=== PATIENT | male | born 1945 | race American Indian/Alaskan Native ===

== ENCOUNTER 2017-11-14 11:18 | Day surgery (SDC) | payer MEDICARE ==
[~2017-11-14 11:18] MED LIST: TETRACAINE 0.5% OD PRN
--- NOTE | 2017-11-14 13:06 | Anesthesia Day of Surgery ---
Anesthesia Day of Surgery - Day of Surgery Patient Examined: Yes Patient H&P Reviewed: Yes Patient is NPO: Yes
--- NOTE | 2017-11-14 13:06 | Anesthesia Consultation ---
Anesthesia Consult and Med Hx Date of service: 11/14/17 - Airway Anesthetic Teeth Evaluation: Good ROM Head & Neck: Adequate Mental/Hyoid Distance: Adequate Mallampati Class: Class I Intubation Access Assessment: Good - Pulmonary Exam CTA: Yes (wheezy from cold) - Cardiac Exam Cardiac Exam: RRR - Pre-Operative Health Status ASA Pre-Surgery Classification: ASA3 Proposed Anesthetic Plan: MAC - Pulmonary Hx Sleep Apnea: Yes (NON COMPLIANT WITH CPAP) - Cardiovascular System Hx Hypertension: Yes (1972) Hx Pacemaker: Yes - Central Nervous System Hx Psychiatric Problems: No - Other Systems Hx Alcohol Use: No Hx Substance Use: No Hx Cancer: No - Additional Comments Anesthesia Medical History Comments: high cholest. Has cold with cough, wheezy
[2017-11-14] MEDS ORDERED: PROVENTIL IH ONE (13:38)
[2017-11-14] MEDS ORDERED: PROVENTIL IH NR (13:50)
[2017-11-14] MEDS: MYDRIACYL OD SCH ×3 (13:50→14:00)
[2017-11-14] MEDS: VIGAMOX OD SCH ×3 (13:50→14:00)
[2017-11-14] MEDS: AK-Dilate OD SCH ×3 (13:50→14:00)
[2017-11-14] MEDS ORDERED: SUBLIMAZE ONE (13:56)
[2017-11-14] MEDS ORDERED: VERSED ONE (13:56)
--- NOTE | 2017-11-14 15:06 | Operative Report ---
Operative Report Operative Report: PATIENT'S NAME: DATE OF : DATE OF SURGERY: 11/14/2017 PREOPERATIVE DIAGNOSIS: Cataract right eye POSTOPERATIVE DIAGNOSIS: Same OPERATIVE PROCEDURE: Phacoemulsification with intraocular lens implantation, right eye SURGEON: Aruna Harris M.D. STUDENT OUTREACH COORDINATOR SURGEON: Nuria Lens: SA60WF 21.0 D ANESTHESIA: Monitored anesthesia care in combination with topical and intracameral anesthesia because of the established specific risk of reflux, arrhythmias, or anxiety attacks associated with ocular manipulation, as well as the difficulty of the sugar house supervisor to manage such potentially catastrophic events while simultaneously attempting to complete the surgical procedure and was deemed necessary for the patient's safety to have an Communications Advisor present during the procedure whenever possible. An Communications Advisor was utilized to regulate the intravenous sedation of the patient so the patient was cooperative yet not asleep in order for the patient to successfully maintain fixation of the eye on the operating light of the microscope. COMPLICATIONS: No surgical complications No blood loss. ALLERGIES: Codeine lisinopril metformin niacin PROGNOSIS: Excellent INDICATIONS FOR SURGERY: The patient is undergoing surgery in the hopes of eliminating or improving these visual difficulties. PROCEDURE: After arriving at the surgery center, the patient was given topical anesthetic and dilating drops, as noted in the record. The patient was then taken into the operating room and given more anesthetic drops. The eyelids , lashes, and lid margins were scrubbed with Betadine solution, and the patient was draped. The Nurse Communications Advisor administered IV sedation and monitored the patient during the procedure. The eye was then fixated with a 0.12, and a stab incision was made in the peripheral clear cornea into the anterior chamber. This was made on my left side. Viscoelastic was next used to fill the anterior chamber. The eye was once again fixated with the 0.12 forceps and a keratome was used make an incision in clear cornea peripherally on my right hand side temporally. The capsule forceps were used to open the central anterior capsule and then make a continuous round capsulotomy. Hydrodissection was carried out utilizing a cannula and balanced salt solution to delineate the cortical material from the capsule and the nucleus from the cortical material. The phaco tip was introduced into the eye and used to remove the anterior cortical material in the area of the capsulotomy. Then the phaco tip was buried into the nucleus, and a chopping instrument was introduced into the eye and used to provide countertraction in the nucleus between this instrument and the phaco tip fracturing the nucleus. This procedure was repeated multiple times, providing multiple small segments of the lens, and then the phaco tip was used to remove each of these segments. An I/A tip was then used to remove the remaining cortex. The anterior chamber was refilled with viscoelastic. An one-piece, acrylic intraocular lens was then placed into an inserting cartridge. The tip of the inserting cartridge was introduced into the keratome incision and into the anterior chamber. The implant was gently advanced through the cartridge and into the eye, where it unfolded, and both haptics were placed in the capsular bag, where it centered nicely and appeared to be well fixated. After placement of the intraocular lens, the I~and~A handpiece was placed back into the eye and used to remove the viscoelastic, including viscoelastic that was behind the optic of the intraocular lens. The anterior chamber was then filled with balanced salt solution, and hydration of the wound was used to cause swelling of the wound and more appropriate watertight closure. When the wound was found to be firm, the patient was asked to comment on how bright the light was. If there was no light perception at all or if the light was substantially dimmer than during the rest of the surgery, the amount of fluid in the eye was decompressed to lower the intraocular pressure until the patient could see the bright light again. This was done to avoid any damage or decreased blood flow to the optic nerve. MEDICATIONS APPLIED AT END OF SURGERY: One drop of Pred Forte and Vigamox The patient was given a shield to wear at night and was instructed not to rub or push on the eye. DISCHARGE SUMMARY: The patient was released in stable condition. The patient and those with the patient were given a written sheet of postoperative instructions and counseling on any abnormal laboratory studies. The patient is to see us tomorrow for follow-up in the office and is to call immediately for any difficulties. Aruna Harris M.D. Date
--- NOTE | 2017-11-14 15:07 | Short Stay Summary ---
Short Stay Documentation Date of service: 11/14/17 - History H&P: obtained from office - Allergies and Medications Current Medications: Allergies codeine Allergy (Verified 11/13/17 16:19) Unknown lisinopril Allergy (Verified 11/13/17 16:19) Unknown metformin Allergy (Verified 11/13/17 16:19) Unknown niacin Allergy (Verified 11/13/17 16:19) Unknown rosuvastatin Allergy (Verified 11/13/17 16:19) Unknown simvastatin Allergy (Verified 11/13/17 16:19) Unknown spironolactone Allergy (Verified 11/13/17 16:19) Unknown tramadol Allergy (Verified 11/13/17 16:19) Unknown Home Medications Medication Instructions Recorded Confirmed Last Taken Type Acetaminophen [Pain Relief] 500 mg PO TID 11/13/17 11/13/17 11/13/17 History Albuterol Sulfate [Proair 90 mcg IH Q6H PRN 11/13/17 11/14/17 05/02/17 History Respiclick] Allopurinol [Zyloprim] 300 mg PO QDAY 11/13/17 11/13/17 11/13/17 History Aspirin EC [Aspirin Enteric Coated 81 mg PO QDAY 11/13/17 11/13/17 11/13/17 History TAB] Atorvastatin Calcium [Lipitor] 80 mg PO QDAY 11/13/17 11/13/17 11/13/17 History Eplerenone [Inspra] 25 mg PO DAILY 11/13/17 11/13/17 11/13/17 History Furosemide [Lasix TAB] 40 mg PO BID 11/13/17 11/13/17 11/13/17 History Gabapentin [Neurontin] 400 mg PO Q8HR 11/13/17 11/13/17 11/13/17 History Insulin Aspart [NovoLOG Flexpen] 20 units SQ AC 11/13/17 11/13/17 11/13/17 History Insulin Glargine [Lantus] 50 units SQ QHS 11/13/17 11/13/17 11/13/17 History Metoprolol Succinate [Toprol Xl] 200 mg PO DAILY 11/13/17 11/13/17 11/13/17 History Montelukast [Singulair] 10 mg PO QPM 11/13/17 11/13/17 Unknown History Potassium Chloride [K-Dur] 20 meq PO QDAY 11/13/17 11/13/17 11/13/17 History Sildenafil Citrate [Viagra] 25 mg PO QDAY PRN 11/13/17 11/13/17 11/13/17 History Valsartan [Diovan] 160 mg PO BID 11/13/17 11/13/17 11/13/17 History Active Medications Albuterol (Proventil) 2.5 mg IH PREOP NR Stop: 11/14/17 23:59 Moxifloxacin HCl (Vigamox) 1 drops OD Q5MIN JACQUELYN Stop: 11/14/17 23:59 Last Admin: 11/14/17 14:00 Dose: 1 drops Phenylephrine HCl (Ak-Dilate) 1 drops OD Q5MIN JACQUELYN Stop: 11/16/17 06:01 Last Admin: 11/14/17 14:00 Dose: 1 drops Prednisolone Acetate (Pred Forte 1%) 1 drops OD QID JACQUELYN Tetracaine HCl (Tetracaine 0.5%) 1 drops OD Q5M PRN PRN Reason: Analgesia Last Admin: 11/14/17 13:50 Dose: 1 drops Tropicamide (Mydriacyl) 1 drops OD Q5MIN JACQUELYN Stop: 11/16/17 06:01 Last Admin: 11/14/17 14:00 Dose: 1 drops - Brief post op/procedure progress note Date of procedure: 11/14/17 Pre-op diagnosis: right cataract Post-op diagnosis: same Procedure: Phacoemulsification with intraocular lens insertion right eye Anesthesia: MAC Surgeon: SHEELA GALARZA Estimated blood loss: none Pathology: none Condition: stable - Disposition Condition at discharge: Good Disposition: DC-01 TO HOME OR SELFCARE - Discharge Diagnoses (1) Cataract Status: Acute Qualifiers: Cataract type: age-related Age-related cataract type: nuclear Laterality : right Qualified Code(s): H25.11 - Age-related nuclear cataract, right eye Short Stay Discharge Plan Additional Instructions: FOLLOW SURGEON INSTRUCTION SHEETS. Follow up with: CLEMENCIA KEBEDE MD [Primary Care Provider] - 7 Days Forms: Outpatient Surgery DC Inst.
[2017-11-14 15:25] VITALS: BP 116/59
[2017-11-14] MEDS ORDERED: PRED FORTE 1% OD SCH (16:30)
== END 2017-11-14 15:35 | disposition home or self-care (01) ==
LOC: OR 11:18
DX: H25.11 Age-related nuclear cataract, right eye (principal); M19.90 Unspecified osteoarthritis, unspecified site; E11.9 Type 2 diabetes mellitus without complications; I10 Essential (primary) hypertension; I50.9 Heart failure, unspecified; Z88.5 Allergy status to narcotic agent; Z88.8 Allergy status to other drugs, medicaments and biological substances; Z79.82 Long term (current) use of aspirin; Z79.899 Other long term (current) drug therapy; Z79.4 Long term (current) use of insulin; Z95.0 Presence of cardiac pacemaker
CPT/HCPCS: 66984; 82962; J2250; J3010; V2632

== ENCOUNTER 2017-11-28 06:50 | Day surgery (SDC) | payer MEDICARE ==
[~2017-11-28 06:50] MED LIST changes: -TETRACAINE 0.5% OD PRN; +TETRACAINE 0.5% OS PRN
[2017-11-28] MEDS: AK-Dilate OS SCH ×3 (07:30→07:40)
[2017-11-28] MEDS: VIGAMOX OS SCH ×3 (07:30→07:40)
[2017-11-28] MEDS: MYDRIACYL OS SCH ×3 (07:30→07:40)
[2017-11-28] MEDS ORDERED: VERSED ONE (08:15)
[2017-11-28] MEDS ORDERED: SUBLIMAZE ONE (08:15)
--- NOTE | 2017-11-28 08:48 | Anesthesia Consultation ---
Anesthesia Consult and Med Hx - Airway Anesthetic Teeth Evaluation: Good, Crowns ROM Head & Neck: Adequate Mental/Hyoid Distance: Adequate Mallampati Class: Class II Intubation Access Assessment: Probably Good - Pulmonary Exam CTA: Yes - Cardiac Exam Cardiac Exam: RRR - Pre-Operative Health Status ASA Pre-Surgery Classification: ASA3 Proposed Anesthetic Plan: MAC - Pulmonary Hx Respiratory Symptoms: Yes (had congestion last surgery; MD okayed, asymtomatic today) SOB: No (possibly seasonal allergies; no need for inhaler today) COPD: No - Cardiovascular System Hx Hypertension: Yes (SINCE 1972; takes beta chanell,took diovan today - BP WNL) - Central Nervous System Hx Neuromuscular Disorder: Yes Hx Psychiatric Problems: No - Endocrine Hx Renal Disease: No (gout) Hx Insulin Dependent Diabetes: Yes - Other Systems Hx Alcohol Use: No Hx Substance Use: No Hx Cancer: No
--- NOTE | 2017-11-28 08:54 | Anesthesia Day of Surgery ---
Anesthesia Day of Surgery - Day of Surgery Patient Examined: Yes Patient H&P Reviewed: Yes Patient is NPO: Yes Beta Blockers: No (BP normal, will give as needed)
[2017-11-28] MEDS ORDERED: WATER FOR IRRIG STERILE IR ONE (08:55)
--- NOTE | 2017-11-28 09:36 | Operative Report ---
Operative Report Operative Report: PATIENT'S NAME: DATE OF : DATE OF SURGERY: 11/28/2017 PREOPERATIVE DIAGNOSIS: Cataract left eye POSTOPERATIVE DIAGNOSIS: Same OPERATIVE PROCEDURE: Phacoemulsification with intraocular lens implantation, left eye SURGEON: Aruna Harris M.D. SOUNDSCRIBER MECHANIC SURGEON: Nuria Lens: SA60WF 22.0 D ANESTHESIA: Monitored anesthesia care in combination with topical and intracameral anesthesia because of the established specific risk of reflux, arrhythmias, or anxiety attacks associated with ocular manipulation, as well as the difficulty of the studio associate to manage such potentially catastrophic events while simultaneously attempting to complete the surgical procedure and was deemed necessary for the patient's safety to have an Make Up Operator present during the procedure whenever possible. An Make Up Operator was utilized to regulate the intravenous sedation of the patient so the patient was cooperative yet not asleep in order for the patient to successfully maintain fixation of the eye on the operating light of the microscope. COMPLICATIONS: No surgical complications No blood loss. ALLERGIES: Codeine lisinopril and metformin niacin PROGNOSIS: Excellent INDICATIONS FOR SURGERY: The patient is undergoing surgery in the hopes of eliminating or improving these visual difficulties. PROCEDURE: After arriving at the surgery center, the patient was given topical anesthetic and dilating drops, as noted in the record. The patient was then taken into the operating room and given more anesthetic drops. The eyelids , lashes, and lid margins were scrubbed with Betadine solution, and the patient was draped. The Nurse Make Up Operator administered IV sedation and monitored the patient during the procedure. The eye was then fixated with a 0.12, and a stab incision was made in the peripheral clear cornea into the anterior chamber. This was made on my left side. Viscoelastic was next used to fill the anterior chamber. The eye was once again fixated with the 0.12 forceps and a keratome was used make an incision in clear cornea peripherally on my right hand side temporally. The capsule forceps were used to open the central anterior capsule and then make a continuous round capsulotomy. Hydrodissection was carried out utilizing a cannula and balanced salt solution to delineate the cortical material from the capsule and the nucleus from the cortical material. The phaco tip was introduced into the eye and used to remove the anterior cortical material in the area of the capsulotomy. Then the phaco tip was buried into the nucleus, and a chopping instrument was introduced into the eye and used to provide countertraction in the nucleus between this instrument and the phaco tip fracturing the nucleus. This procedure was repeated multiple times, providing multiple small segments of the lens, and then the phaco tip was used to remove each of these segments. An I/A tip was then used to remove the remaining cortex. The anterior chamber was refilled with viscoelastic. An one-piece, acrylic intraocular lens was then placed into an inserting cartridge. The tip of the inserting cartridge was introduced into the keratome incision and into the anterior chamber. The implant was gently advanced through the cartridge and into the eye, where it unfolded, and both haptics were placed in the capsular bag, where it centered nicely and appeared to be well fixated. After placement of the intraocular lens, the I~and~A handpiece was placed back into the eye and used to remove the viscoelastic, including viscoelastic that was behind the optic of the intraocular lens. The anterior chamber was then filled with balanced salt solution, and hydration of the wound was used to cause swelling of the wound and more appropriate watertight closure. When the wound was found to be firm, the patient was asked to comment on how bright the light was. If there was no light perception at all or if the light was substantially dimmer than during the rest of the surgery, the amount of fluid in the eye was decompressed to lower the intraocular pressure until the patient could see the bright light again. This was done to avoid any damage or decreased blood flow to the optic nerve. MEDICATIONS APPLIED AT END OF SURGERY: One drop of Pred Forte and Vigamox The patient was given a shield to wear at night and was instructed not to rub or push on the eye. DISCHARGE SUMMARY: The patient was released in stable condition. The patient and those with the patient were given a written sheet of postoperative instructions and counseling on any abnormal laboratory studies. The patient is to see us tomorrow for follow-up in the office and is to call immediately for any difficulties. Aruna Harris M.D. Date
--- NOTE | 2017-11-28 09:37 | Short Stay Summary ---
Short Stay Documentation Date of service: 11/28/17 - History H&P: obtained from office - Allergies and Medications Current Medications: Allergies codeine Allergy (Verified 11/27/17 15:57) Unknown lisinopril Allergy (Verified 11/27/17 15:57) Unknown metformin Allergy (Verified 11/27/17 15:57) Unknown niacin Allergy (Verified 11/27/17 15:57) Unknown rosuvastatin Allergy (Verified 11/27/17 15:57) Unknown simvastatin Allergy (Verified 11/27/17 15:57) Unknown spironolactone Allergy (Verified 11/27/17 15:57) Unknown tramadol Allergy (Verified 11/27/17 15:57) Unknown Home Medications Medication Instructions Recorded Confirmed Last Taken Type Acetaminophen [Pain Relief] 500 mg PO TID 11/13/17 11/27/17 11/13/17 History Albuterol Sulfate [Proair 90 mcg IH Q6H PRN 11/13/17 11/27/17 05/02/17 History Respiclick] Allopurinol [Zyloprim] 300 mg PO QDAY 11/13/17 11/27/17 11/13/17 History Aspirin EC [Aspirin Enteric Coated 81 mg PO QDAY 11/13/17 11/27/17 11/13/17 History TAB] Atorvastatin Calcium [Lipitor] 80 mg PO QDAY 11/13/17 11/27/17 11/13/17 History Eplerenone [Inspra] 25 mg PO DAILY 11/13/17 11/27/17 11/13/17 History Furosemide [Lasix TAB] 40 mg PO BID 11/13/17 11/27/17 11/13/17 History Gabapentin [Neurontin] 400 mg PO Q8HR 11/13/17 11/27/17 11/13/17 History Insulin Aspart [NovoLOG Flexpen] 20 units SQ AC 11/13/17 11/27/17 11/13/17 History Insulin Glargine [Lantus] 50 units SQ QHS 11/13/17 11/27/17 11/13/17 History Metoprolol Succinate [Toprol Xl] 200 mg PO DAILY 11/13/17 11/27/17 11/13/17 History Montelukast [Singulair] 10 mg PO QPM 11/13/17 11/27/17 Unknown History Potassium Chloride [K-Dur] 20 meq PO QDAY 11/13/17 11/27/17 11/13/17 History Sildenafil Citrate [Viagra] 25 mg PO QDAY PRN 11/13/17 11/27/17 11/13/17 History Valsartan [Diovan] 160 mg PO BID 11/13/17 11/27/17 11/13/17 History Active Medications Moxifloxacin HCl (Vigamox) 1 drops OS Q5MIN JACQUELYN Stop: 11/28/17 23:59 Last Admin: 11/28/17 07:40 Dose: 1 drops Phenylephrine HCl (Ak-Dilate) 1 drops OS Q5MIN JACQUELYN Stop: 11/28/17 23:59 Last Admin: 11/28/17 07:40 Dose: 1 drops Prednisolone Acetate (Pred Forte 1%) 1 drops OS QID JACQUELYN Tetracaine HCl (Tetracaine 0.5%) 1 drops OS Q5M PRN PRN Reason: Analgesia Stop: 11/28/17 23:59 Last Admin: 11/28/17 07:30 Dose: 1 drops Tropicamide (Mydriacyl) 1 drops OS Q5MIN JACQUELYN Stop: 11/28/17 23:59 Last Admin: 11/28/17 07:40 Dose: 1 drops - Brief post op/procedure progress note Date of procedure: 11/28/17 Pre-op diagnosis: left cataract Post-op diagnosis: same Procedure: Phacoemulsification with intraocular lens insertion left eye Anesthesia: MAC, local Surgeon: SHEELA GALARZA Estimated blood loss: none Pathology: none Condition: stable - Disposition Condition at discharge: Good Disposition: DC-01 TO HOME OR SELFCARE - Discharge Diagnoses (1) Cataract Status: Resolved Qualifiers: Cataract type: age-related Age-related cataract type: nuclear Laterality : left Qualified Code(s): H25.12 - Age-related nuclear cataract, left eye Short Stay Discharge Plan Follow up with: KATELYNN CASTANEDA MD [Primary Care Provider] - 7 Days
[2017-11-28] MEDS ORDERED: PRED FORTE 1% OS SCH (10:00)
--- NOTE | 2017-11-28 10:58 | Post Anesthesia Evaluation ---
- Post Anesthesia Evaluation Patient Participated: Yes Airway Patent: Yes Stable Respiratory Function: Yes Temp > 96.8F: Yes Pain Manageable: Yes Adequeate Hydration: Yes Anesthesia Complications: No
[2017-11-28 11:51] VITALS: BP 167/95
== END 2017-11-28 06:51 | disposition home or self-care (01) ==
LOC: OR 06:50
DX: E11.36 Type 2 diabetes mellitus with diabetic cataract (principal); I10 Essential (primary) hypertension; Z88.8 Allergy status to other drugs, medicaments and biological substances; J44.9 Chronic obstructive pulmonary disease, unspecified
CPT/HCPCS: 66984; 82962; J2250; J3010; V2632